=== PATIENT | female | born 1960 | race Caucasian/White ===

== ENCOUNTER 2019-02-23 07:53 | Day surgery (SDC) | payer OTHER ==
[~2019-02-23] VITALS: Ht 172.7 cm; Wt 88.0 kg
[2019-02-23] MEDS ORDERED: fentaNYL CITRATE/PF 100 MCG/2 ML AMP IVP PRN ×2 (08:45)
[2019-02-23] MEDS ORDERED: ONDANSETRON HCL 4 MG/2 ML VIAL IVP PRN ×2 (08:45→12:00)
[2019-02-23] MEDS ORDERED: KETOROLAC TROMETHAMINE 30 MG VIAL IVP PRN (08:45)
[2019-02-23] MEDS ORDERED: SEVOFLURANE 15 MIN GAS INH ONE (11:01)
[2019-02-23] MEDS ORDERED: MIDAZOLAM HCL 5 MG/5 ML VIAL IVP ONE (11:01)
[2019-02-23] MEDS ORDERED: LR 1,000 ML IV.SOLN IV ONE (11:01)
[2019-02-23] MEDS ORDERED: KETOROLAC TROMETHAMINE 30 MG VIAL IVP ONE (11:01)
[2019-02-23] MEDS ORDERED: NS IRRIG SOLN 1000 ML IR ONE (11:01)
[2019-02-23] MEDS ORDERED: PROPOFOL 200MG/ 20ML VIAL (DIPRIVAN) IV ONE (11:01)
[2019-02-23] MEDS ORDERED: fentaNYL CITRATE/PF 100 MCG/2 ML AMP IVP ONE (11:01)
[2019-02-23] MEDS ORDERED: BUPIVACAINE /PF 0.25% 30 ML VIAL INJ ONE (11:01)
[2019-02-23] MEDS ORDERED: hydrALAZINE HCL 20 MG/ML VIAL IVP ONE (11:01)
[2019-02-23] MEDS ORDERED: ONDANSETRON HCL 4 MG/2 ML VIAL IVP ONE (11:01)
[2019-02-23] MEDS ORDERED: OXYCODONE/ACETAMINOPHEN 5-325 TABLET PO PRN ×2 (12:00)
[2019-02-23] MEDS ORDERED: IBUPROFEN 800 MG TABLET PO PRN (12:00)
[2019-02-23 12:47] VITALS: BP_SYST 129
== END 2019-02-23 14:05 | disposition home or self-care (01) ==
LOC: SDS 07:53 → SMU 07:53 → SDS 14:05
PROVIDERS: ATTEND Obstetrics & Gynecology
DX: D17.79 Benign lipomatous neoplasm of other sites (principal); Z98.890 Other specified postprocedural states; Z68.30 Body mass index [BMI] 30.0-30.9, adult; I10 Essential (primary) hypertension; Z87.891 Personal history of nicotine dependence; Z79.899 Other long term (current) drug therapy
CPT/HCPCS: 56620; 88304; J0360; J1885; J2250; J2405; J2704; J3010; J3490; J7120; 88305